=== PATIENT | male | born 1935 | race Two or more races ===

== ENCOUNTER 2017-11-22 15:22 | Emergency (ER) | payer MEDICARE ==
[~2017-11-22] VITALS: Ht 167.6 cm; Wt 77.1 kg
[2017-11-22] MEDS ORDERED: IV NS 0.9% 1,000 ML BAG IV ONE (16:30)
--- NOTE | 2017-11-22 16:30 | NUR ---
PT CAME FROM CLINIC C/O HIGH BLOOD SUGAR. PT DENIES CP, SOB, DIZZINESS, N/V, @ THIS TIME. PT SEEN & EVAL'D BY DR. ROMERO.
[2017-11-22 16:31] LABS: BASOPHILS # (AUTO) 0.1 /CMM (0.0-0.2); BASOPHILS % (AUTO) 0.9 % (0.0-2.0); EOSINOPHILS % (AUTO) 1.8 % (0.0-6.0); HEMATOCRIT 45 % (39-51); HEMOGLOBIN 14.9 g/dL (13.5-17.5); LYMPHOCYTES # (AUTO) 2.2 /CMM (0.8-4.8); LYMPHOCYTES % (AUTO) 32.4 % (20.0-44.0); MEAN CORPUSCULAR HEMOGLOBIN 29 PG (26.0-33.0); MEAN CORPUSCULAR HGB CONC 33 g/dl (31.0-36.0); MEAN CORPUSCULAR VOLUME 87 fL (80-96); MONOCYTES # (AUTO) 0.3 /CMM (0.1-1.30); MONOCYTES % (AUTO) 4.5 % (2.0-12.0); NEUTROPHILS # (AUTO) 4.1 /CMM (1.8-8.9); NEUTROPHILS % (AUTO) 60.4 % (43.0-81.0); PLATELET COUNT (AUTO) 168 /CMM (150-450); RDW COEFFICIENT OF VARIATION 12.7 (11.5-15.0); RED BLOOD CELL COUNT(AUTO) 5.21 MIL/uL (4.5-6.0); WHITE BLOOD COUNT (AUTO) 6.8 K/uL (4.3-11.0)
--- NOTE | 2017-11-22 16:37 | NUR ---
urine sent to lab
[2017-11-22 16:46] LABS: ALANINE AMINOTRANSFERASE 96 U/L (12-78); ALBUMIN 3.8 g/dL (3.4-5.0); ALKALINE PHOSPHATASE 74 U/L (46-116); ASPARTATE AMINOTRANSFERASE 75 U/L (15-37); BILIRUBIN,DIRECT 0.2 mg/dL (0.0-0.2); BILIRUBIN,TOTAL 0.9 mg/dL (0.2-1.0); CALCIUM, SERUM 9.7 mg/dL (8.5-10.1); CARBON DIOXIDE 29 mmol/L (21-32); CHLORIDE 95 mmol/L (98-107); CREATININE 1.1 mg/dL (0.6-1.3); LIPASE 240 U/L (73-393); POTASSIUM 4.2 mmol/L (3.5-5.1); SODIUM SERUM 131 mmol/L (136-145); TOTAL PROTEIN, SERUM 9.5 g/dL (6.4-8.2); UREA NITROGEN, BLOOD 18 mg/dL (7-18)
[2017-11-22 16:51] LABS: GLUCOSE 373 mg/dL (74-106)
[2017-11-22 16:53] LABS: APPEARANCE,URINE SL CLOUDY (CLEAR); BILIRUBIN,URINE NEGATIVE (NEGATIVE); BLOOD, URINE NEGATIVE Ery/uL (NEGATIVE); COLOR,URINE YELLOW (YELLOW); KETONES,URINE NEGATIVE (NEGATIVE); LEUKOCYTE ESTERASE ,URINE NEGATIVE (NEGATIVE); NITRITE, URINE NEGATIVE (NEGATIVE); PROTEIN,URINE NEGATIVE (NEGATIVE); UGLUCOSE 3+ mg/dL (NEGATIVE); UROBILINOGEN,URINE 0.2 EU/dL (0.2)
[2017-11-22 16:56] LABS: BACTERIA,URINE None seen /HPF (None Seen); RBC,URINE 0-2 /HPF (0-2); SQUAMOUS EPITHELIAL CELL,UR Rare /HPF (None Seen); WBC,URINE 0-2 /HPF (0-3)
[2017-11-22 18:15] VITALS: BP 142/88
--- NOTE | 2017-11-22 18:30 | NUR ---
IV removed. Catheter intact and site benign. Pressure and 4x4 applied to site. No bleeding noted.
--- NOTE | 2017-11-22 18:31 | NUR ---
IV removed. Catheter intact and site benign. Pressure and 4x4 applied to site. No bleeding noted.
--- NOTE | 2017-11-22 18:36 | NUR ---
Patient discharged to home in stable condition. Written and verbal after care instructions given. Patient verbalizes understanding of instruction.
== END 2017-11-22 18:37 | disposition home or self-care (01) ==
LOC: EDBD 15:29 → ER 15:29
DX: E11.65 Type 2 diabetes mellitus with hyperglycemia (principal); I10 Essential (primary) hypertension
CPT/HCPCS: 36415; 80048; 80076; 81001; 82962 ×2; 83690; 85025; 96360; 99284; A4606; J7030; 81000-TC; Z7610

== ENCOUNTER 2018-03-20 19:09 | Emergency (ER) | payer MEDICAID, MEDICARE ==
[~2018-03-20] VITALS: Ht 170.2 cm; Wt 84.4 kg
--- NOTE | 2018-03-20 19:40 | NUR ---
Pt came in for abdominal discomfort from diarrhea, bloody stool reported by family member. Pt is A, O/4, does not c/o of abdominal pain at this time. No diarrhea episode noted on assement. Awaiting to be seen by .
[2018-03-20 20:10] LABS: BASOPHILS # (AUTO) 0.1 /CMM (0.0-0.2); EOSINOPHILS % (AUTO) 3.5 % (0.0-6.0); HEMATOCRIT 43 % (39-51); LYMPHOCYTES # (AUTO) 2.3 /CMM (0.8-4.8); LYMPHOCYTES % (AUTO) 39.1 % (20.0-44.0); MEAN CORPUSCULAR HGB CONC 33 g/dl (31.0-36.0); MEAN CORPUSCULAR VOLUME 88 fL (80-96); MONOCYTES # (AUTO) 0.3 /CMM (0.1-1.30); MONOCYTES % (AUTO) 5.7 % (2.0-12.0); NEUTROPHILS # (AUTO) 2.9 /CMM (1.8-8.9); NEUTROPHILS % (AUTO) 50.7 % (43.0-81.0); PLATELET COUNT (AUTO) 132 /CMM (150-450); RED BLOOD CELL COUNT(AUTO) 4.86 MIL/uL (4.5-6.0); WHITE BLOOD COUNT (AUTO) 5.8 K/uL (4.3-11.0)
[2018-03-20 20:23] LABS: ALANINE AMINOTRANSFERASE 87 U/L (12-78); ALBUMIN 3.4 g/dL (3.4-5.0); ALKALINE PHOSPHATASE 75 U/L (46-116); ASPARTATE AMINOTRANSFERASE 74 U/L (15-37); BILIRUBIN,DIRECT 0.2 mg/dL (0.0-0.2); BILIRUBIN,TOTAL 0.8 mg/dL (0.2-1.0); CARBON DIOXIDE 26 mmol/L (21-32); CHLORIDE 96 mmol/L (98-107); CREATININE 1.2 mg/dL (0.6-1.3); LIPASE 181 U/L (73-393); SODIUM SERUM 132 mmol/L (136-145); TOTAL PROTEIN, SERUM 8.1 g/dL (6.4-8.2); UREA NITROGEN, BLOOD 15 mg/dL (7-18)
[2018-03-20 20:25] LABS: GLUCOSE 493 mg/dL (74-106)
[2018-03-20] MEDS ORDERED: INSULIN REGULAR, HUMAN 100 UNIT/ML 10 ML VIAL ONE (20:49)
[2018-03-20] MEDS ORDERED: INSULIN REGULAR, HUMAN 100 UNIT/ML 10 ML VIAL SQ ONE (21:00)
[2018-03-20] MEDS ORDERED: IV NS 0.9% 1,000 ML BAG IV ONE (21:00)
--- NOTE | 2018-03-20 21:40 | NUR ---
Pt appears calm in bed, family members at bedside. No episode of diarrhea, no abdominal discomfort reported.
--- NOTE | 2018-03-20 21:50 | NUR ---
Patient discharged to home in stable condition. Written and verbal after care instructions given. Patient verbalizes understanding of instruction.IV removed. Catheter intact and site benign. Pressure and 4x4 applied to site. No bleeding noted.Pt ambulatory with a steady gait.
[2018-03-20 21:59] VITALS: BP 140/64
== END 2018-03-20 22:00 | disposition home or self-care (01) ==
LOC: ER 19:10
DX: K92.1 Melena (principal); E11.65 Type 2 diabetes mellitus with hyperglycemia; I10 Essential (primary) hypertension
CPT/HCPCS: 36415; 80048; 80076; 83690; 85025; 85730; 93005; 96360; 96372; 99284; A4606; J1815; J7030; Z7610

== ENCOUNTER 2019-01-11 20:07 | Emergency (ER) | payer MEDICARE, MEDICAID ==
[~2019-01-11] VITALS: Ht 165.1 cm; Wt 79.4 kg
--- NOTE | 2019-01-11 20:35 | NUR ---
PT SENT BY PMD FOR BG AT 575. PT ON MONITOR IN BED 10 WITH FAMILY AT BEDSIDE. PT AOX4. NAD NOTED. REPS EVEN AND UNLABORED. WILL CONTINUE TO MONITOR.
[2019-01-11 21:29] LABS: BASOPHILS # (AUTO) 0.1 /CMM (0.0-0.2); BASOPHILS % (AUTO) 1.4 % (0.0-2.0); EOSINOPHILS % (AUTO) 4.2 % (0.0-6.0); HEMATOCRIT 43 % (39-51); LYMPHOCYTES # (AUTO) 2.3 /CMM (0.8-4.8); LYMPHOCYTES % (AUTO) 35.6 % (20.0-44.0); MEAN CORPUSCULAR HGB CONC 33 g/dl (31.0-36.0); MEAN CORPUSCULAR VOLUME 83 fL (80-96); MONOCYTES # (AUTO) 0.5 /CMM (0.1-1.30); MONOCYTES % (AUTO) 7.7 % (2.0-12.0); NEUTROPHILS # (AUTO) 3.3 /CMM (1.8-8.9); NEUTROPHILS % (AUTO) 51.1 % (43.0-81.0); PLATELET COUNT (AUTO) 138 /CMM (150-450); RED BLOOD CELL COUNT(AUTO) 5.12 MIL/uL (4.5-6.0); WHITE BLOOD COUNT (AUTO) 6.4 K/uL (4.3-11.0)
[2019-01-11] MEDS ORDERED: INSULIN REGULAR, HUMAN 100 UNIT/ML 10 ML VIAL IV ONE (21:30)
[2019-01-11] MEDS ORDERED: IV NS 0.9% 1,000 ML BAG IV ONE (21:30)
[2019-01-11 21:48] LABS: CALCIUM, SERUM 9.2 mg/dL (8.5-10.1); POTASSIUM 4.4 mmol/L (3.5-5.1)
[2019-01-11] MEDS ORDERED: INSULIN REGULAR, HUMAN 100 UNIT/ML 10 ML VIAL ONE (21:48)
--- NOTE | 2019-01-11 22:19 | NUR ---
BG 351. AWARE.
[2019-01-11 22:40] VITALS: BP 135/84
--- NOTE | 2019-01-11 22:40 | NUR ---
Patient discharged to home in stable condition. Written and verbal after care instructions given. Patient verbalizes understanding of instruction. IV removed. Catheter intact and site benign. Pressure and 4x4 applied to site. No bleeding noted. AMBULATORY STEADY GAIT.
== END 2019-01-11 22:53 | disposition home or self-care (01) ==
LOC: ER 20:12
DX: E11.65 Type 2 diabetes mellitus with hyperglycemia (principal); I10 Essential (primary) hypertension; F17.210 Nicotine dependence, cigarettes, uncomplicated; Z79.4 Long term (current) use of insulin
CPT/HCPCS: 36415; 80048; 82962 ×2; 84484; 85025; 93005; 96361; 96374; 99284; 99406; J1815; J7030

== ENCOUNTER 2019-01-14 12:28 | Emergency (ER) | payer MEDICARE, MEDICAID ==
[~2019-01-14] VITALS: Ht 167.6 cm; Wt 77.1 kg
--- NOTE | 2019-01-14 12:45 | NUR ---
BIB FAMILY FOR LEFT ARM NUMBNESS - AT 0600 AM TODAY; WITH HEADACHE, TO ER BED 10, HOOKED TO MONITOR, CHANGED TO GOWN, PROVIDED W WARM BLANKET, DR PATEL AT BEDSIDE
[2019-01-14 12:59] LABS: BASOPHILS % (AUTO) 0.7 % (0.0-2.0); EOSINOPHILS % (AUTO) 3.2 % (0.0-6.0); HEMATOCRIT 44 % (39-51); HEMOGLOBIN 14.4 g/dL (13.5-17.5); LYMPHOCYTES # (AUTO) 2.5 /CMM (0.8-4.8); MEAN CORPUSCULAR HGB CONC 33 g/dl (31.0-36.0); MEAN CORPUSCULAR VOLUME 84 fL (80-96); MONOCYTES # (AUTO) 0.4 /CMM (0.1-1.30); MONOCYTES % (AUTO) 5.8 % (2.0-12.0); NEUTROPHILS # (AUTO) 3.7 /CMM (1.8-8.9); NEUTROPHILS % (AUTO) 54.3 % (43.0-81.0); PLATELET COUNT (AUTO) 141 /CMM (150-450); RED BLOOD CELL COUNT(AUTO) 5.28 MIL/uL (4.5-6.0); WHITE BLOOD COUNT (AUTO) 6.9 K/uL (4.3-11.0)
[2019-01-14] MEDS ORDERED: IV NS 0.9% 500 ML BAG IV ONE (13:00)
--- NOTE | 2019-01-14 13:11 | NUR ---
PATIENT WHEELED OUT VIA GURNEY FOR CT SCAN
[2019-01-14 13:13] LABS: CARBON DIOXIDE 28 mmol/L (21-32); CHLORIDE 97 mmol/L (98-107); SODIUM SERUM 132 mmol/L (136-145)
[2019-01-14 13:15] LABS: CALCIUM, SERUM 9.5 mg/dL (8.5-10.1); CREATININE 0.9 mg/dL (0.6-1.3); UREA NITROGEN, BLOOD 16 mg/dL (7-18)
[2019-01-14 13:21] LABS: ALKALINE PHOSPHATASE 85 U/L (46-116); ASPARTATE AMINOTRANSFERASE 58 U/L (15-37); BILIRUBIN,DIRECT 0.2 mg/dL (0.0-0.2); BILIRUBIN,TOTAL 0.7 mg/dL (0.2-1.0)
[2019-01-14 13:22] LABS: ALANINE AMINOTRANSFERASE 62 U/L (12-78); ALBUMIN 3.5 g/dL (3.4-5.0); TOTAL PROTEIN, SERUM 8.7 g/dL (6.4-8.2)
[2019-01-14 13:25] LABS: GLUCOSE 373 mg/dL (74-106)
[2019-01-14 13:27] LABS: B-TYPE NATRIURETIC PEPTIDE 83 PG/ML (0-125)
[2019-01-14 14:26] VITALS: BP 142/78
--- NOTE | 2019-01-14 14:26 | NUR ---
IV removed. Catheter intact and site benign. Pressure and 4x4 applied to site. No bleeding noted. Patient discharged to home in stable condition. Written and verbal after care instructions given. Patient and family verbalizes understanding of instruction.
== END 2019-01-14 14:27 | disposition home or self-care (01) ==
LOC: ER 12:37
DX: E11.65 Type 2 diabetes mellitus with hyperglycemia (principal); R20.0 Anesthesia of skin; I10 Essential (primary) hypertension
CPT/HCPCS: 36415; 70450; 71045; 80048; 80076; 82962; 83880; 84484; 85025; 85730; 93005 ×2; 99284; J7040

== ENCOUNTER 2019-10-13 13:04 | Emergency (ER) | payer MEDICARE, OTHER ==
[~2019-10-13] VITALS: Ht 167.6 cm; Wt 81.6 kg
[2019-10-13 13:25] VITALS: BP 168/94
--- NOTE | 2019-10-13 14:10 | NUR ---
AT BEDSIDE FOR EVAL.
--- NOTE | 2019-10-13 14:33 | NUR ---
PT IS BACK FROM THE CT SCAN.
--- NOTE | 2019-10-13 15:05 | NUR ---
Patient discharged to home in stable condition. Written and verbal after care instructions given. Patient verbalizes understanding of instruction.
== END 2019-10-13 15:06 | disposition home or self-care (01) ==
LOC: ER 13:17
DX: S13.8XXA Sprain of joints and ligaments of other parts of neck, initial encounter (principal); S00.83XA Contusion of other part of head, initial encounter; R51 Headache; I10 Essential (primary) hypertension; E11.9 Type 2 diabetes mellitus without complications; W18.09XA Striking against other object with subsequent fall, initial encounter; Y93.89 Activity, other specified; Y92.89 Other specified places as the place of occurrence of the external cause; Y99.8 Other external cause status
CPT/HCPCS: 70450-TC; 72125-TC

== ENCOUNTER 2024-08-13 14:05 | Inpatient (IN) | payer MEDICARE, OTHER ==
[~2024-08-13] VITALS: Ht 157.5 cm; Wt 68.9 kg
[2024-08-13] MEDS: IV NS 0.9% 1,000 ML BAG IV ONE ×2 (15:18→17:20)
[2024-08-13 16:02] LABS: BASOPHILS % (AUTO) 0.3 % (0.0-2.0); EOSINOPHILS % (AUTO) 0.1 % (0.0-6.0); HEMATOCRIT 31 % (39-51); LYMPHOCYTES # (AUTO) 0.6 K/uL (0.8-4.8); MEAN CORPUSCULAR HEMOGLOBIN 27 PG (26.0-33.0); MEAN CORPUSCULAR HGB CONC 32 g/dl (31.0-36.0); MEAN CORPUSCULAR VOLUME 84 fL (80-96); MONOCYTES # (AUTO) 0.6 K/uL (0.1-1.30); NEUTROPHILS # (AUTO) 8.2 K/uL (1.8-8.9); NEUTROPHILS % (AUTO) 87.6 % (43.0-81.0); PLATELET COUNT (AUTO) 292 K/uL (150-450); RED BLOOD CELL COUNT(AUTO) 3.66 MIL/uL (4.5-6.0); WHITE BLOOD COUNT (AUTO) 9.3 K/uL (4.3-11.0)
[2024-08-13] MEDS ORDERED: METF-837 PO ×2 (16:11)
[2024-08-13] MEDS ORDERED: GLIM4TAB PO (16:11)
[2024-08-13] MEDS ORDERED: LISI20TA30 PO (16:11)
[2024-08-13] MEDS ORDERED: DOXA4TAB19 PO (16:11)
[2024-08-13 16:17] LABS: CARBON DIOXIDE 21 mmol/L (21-32); CHLORIDE 90 mmol/L (98-107); CREATININE 2.2 mg/dL (0.6-1.3); GLUCOSE 178 mg/dL (74-106); POTASSIUM 3.7 mmol/L (3.5-5.1); SODIUM SERUM 124 mmol/L (136-145); UREA NITROGEN, BLOOD 49 mg/dL (7-18)
[2024-08-13] MEDS: LORAZEPAM INJ 2 MG/ML VIAL IV ONE ×2 (16:20→17:19)
[2024-08-13 16:22] LABS: ALANINE AMINOTRANSFERASE 14 U/L (12-78); ALBUMIN 2.9 g/dL (3.4-5.0); ALCOHOL, BLOOD < 3 mg/dL (0-10); ALKALINE PHOSPHATASE 96 U/L (46-116); ASPARTATE AMINOTRANSFERASE 24 U/L (15-37); BILIRUBIN,DIRECT 0.3 mg/dL (0.0-0.2); BILIRUBIN,TOTAL 0.6 mg/dL (0.2-1.0); TOTAL PROTEIN, SERUM 8.5 g/dL (6.4-8.2)
[2024-08-13 16:24] LABS: ACETAMINOPHEN 0 ug/ml (10-30); SALICYLATE 1.7 mg/dL (2.8-20.0)
[2024-08-13 16:31] LABS: APPEARANCE,URINE CLOUDY (CLEAR); BILIRUBIN,URINE NEGATIVE (NEGATIVE); BLOOD, URINE 1+ Ery/uL (NEGATIVE); COLOR,URINE YELLOW (YELLOW); KETONES,URINE NEGATIVE (NEGATIVE); LEUKOCYTE ESTERASE ,URINE 2+ (NEGATIVE); NITRITE, URINE NEGATIVE (NEGATIVE); PROTEIN,URINE 2+ mg/dl (NEGATIVE); UGLUCOSE NEGATIVE (NEGATIVE); UROBILINOGEN,URINE 0.2 EU/dL (0.2)
[2024-08-13 16:33] LABS: LACTIC ACID 3.3 mmol/L (0.4-2.0)
[2024-08-13 16:41] LABS: ADD URINE CULTURE YES; BACTERIA,URINE Moderate /HPF (None Seen); SQUAMOUS EPITHELIAL CELL,UR 0-2 /HPF (None Seen); WBC,URINE 51-80 /HPF (0-3)
[2024-08-13] MEDS: CEFTRIAXONE 1GM BAG (ER ONLY) 50 ML IV ONE (17:19)
[2024-08-13] MEDS: hydrALAZINE HCL IV 20 MG VIAL IV PRN (18:25)
[2024-08-13] MEDS ORDERED: ENOXAPARIN SODIUM 40 MG/0.4 ML DISP.SYRIN SQ SCH (18:30)
[2024-08-13] MEDS ORDERED: Z GUARD REMEDY 4 OZ OINT TP PRN (18:30)
[2024-08-13] MEDS ORDERED: LORAZEPAM INJ 2 MG/ML VIAL IM PRN (18:30)
[2024-08-13] MEDS ORDERED: ONDANSETRON HCL/PF 4 MG/2 ML VIAL IVP PRN (18:30)
[2024-08-13] MEDS ORDERED: MAG HYDROX/AL HYDROX/SIMETH 30 ML UDC PO PRN (18:30)
[2024-08-13] MEDS ORDERED: LORAZEPAM INJ 2 MG/ML VIAL IV ONE (18:30)
[2024-08-13] MEDS ORDERED: MAGNESIUM HYDROXIDE 30 ML UDC PO PRN (18:30)
[2024-08-13] MEDS ORDERED: CLONIDINE HCL 0.1 MG TABLET ONE (19:36)
[2024-08-13] MEDS: CLONIDINE HCL 0.1 MG TABLET PO PRN (19:46)
[2024-08-13] MEDS ORDERED: ACETAMINOPHEN ES 500 MG TABLET ONE (19:53)
[2024-08-13] MEDS: ACETAMINOPHEN ES 500 MG TABLET PO PRN (19:56)
[2024-08-13 20:00] VITALS: BP 189/83; TEMP 97.9; O2SAT 98
[2024-08-13] MEDS: IV NS 0.9% 1,000 ML IV PRN (20:33)
[2024-08-13] MEDS: DOXAZOSIN MESYLATE (4 MG) 4 MG TABLET PO SCH (20:45)
[2024-08-13] MEDS: LISINOPRIL (20MG) 20 MG TABLET PO SCH (20:45)
[2024-08-13] MEDS: ENOXAPARIN SODIUM 30 MG/0.3 ML DISP.SYRIN SQ SCH (20:46)
[2024-08-13] MEDS: GLIMEPIRIDE 4 MG TABLET PO SCH (20:54)
[2024-08-13 21:30] VITALS: BP 126/61
[2024-08-14] VITALS (32 sets, daily range): BP systolic 81–156; BP diastolic 42–97; TEMP 97.5–100.4; O2SAT 89–100
[2024-08-14] MEDS: ACETAMINOPHEN 325 MG TABLET PO PRN (00:36)
[2024-08-14] MEDS: IV NS 0.9% 500 ML IV ONE (04:39)
[2024-08-14] MEDS ORDERED: IV LR 1000 ML 1,000 ML IV STA (05:24)
[2024-08-14] MEDS: IV LR 1000 ML 1,000 ML IV STA (05:41)
[2024-08-14 06:57] LABS: BASOPHILS % (AUTO) 0.3 % (0.0-2.0); EOSINOPHILS % (AUTO) 0.3 % (0.0-6.0); HEMATOCRIT 24 % (39-51); HEMOGLOBIN 7.8 g/dL (13.5-17.5); LYMPHOCYTES # (AUTO) 2.2 K/uL (0.8-4.8); LYMPHOCYTES % (AUTO) 29.5 % (20.0-44.0); MEAN CORPUSCULAR HEMOGLOBIN 28 PG (26.0-33.0); MEAN CORPUSCULAR HGB CONC 33 g/dl (31.0-36.0); MEAN CORPUSCULAR VOLUME 84 fL (80-96); MONOCYTES # (AUTO) 0.8 K/uL (0.1-1.30); MONOCYTES % (AUTO) 10.4 % (2.0-12.0); NEUTROPHILS # (AUTO) 4.3 K/uL (1.8-8.9); NEUTROPHILS % (AUTO) 59.5 % (43.0-81.0); PLATELET COUNT (AUTO) 197 K/uL (150-450); RED BLOOD CELL COUNT(AUTO) 2.82 MIL/uL (4.5-6.0); RED CELL DISTRIBUTION WIDTH 14.8 % (11.5-15.0); WHITE BLOOD COUNT (AUTO) 7.3 K/uL (4.3-11.0)
[2024-08-14 07:09] LABS: CALCIUM, SERUM 6.8 mg/dL (8.5-10.1); CREATININE 2.1 mg/dL (0.6-1.3); MAGNESIUM 1.6 mg/dL (1.8-2.4); PHOSPHORUS 3.2 mg/dL (2.5-4.9); POTASSIUM 3.2 mmol/L (3.5-5.1)
[2024-08-14] MEDS: PANTOPRAZOLE 40 MG TABLET.DR PO SCH (07:30)
[2024-08-14 07:34] LABS: LACTIC ACID 1.8 mmol/L (0.4-2.0)
[2024-08-14] MEDS: DEXTROSE 50%-WATER 50 ML DISP.SYRIN IV PRN (07:40)
[2024-08-14] MEDS: BLOOD SUGAR DIAGNOSTIC 1 EACH STRIP IN SCH (07:47)
[2024-08-14] MEDS: CEFTRIAXONE 1 G in IV D5W 50 ML IV SCH (07:52)
[2024-08-14] MEDS: NOREPINEPHRINE 32 MG in IV NS 0.9% 218 ML IV PRN (07:58)
[2024-08-14] MEDS: IV NS 0.9% 1,000 ML IV PRN (08:43)
[2024-08-14] MEDS ORDERED: METFORMIN XR 500 MG TAB.SR.24H PO SCH ×4 (09:00→18:00)
[2024-08-14] MEDS: Thiamine 100 MG in IV D5W 50 ML IV SCH (12:10)
[2024-08-14 12:14] LABS: CREATININE, URINE 33.5 MG/DL (30.0-125.0); URINE TOTAL PROTEIN 206.7 mg/dL (0-11.9)
[2024-08-14] MEDS ORDERED: DOSE PER PHARMACY (MD SPECIFY MEDICATION) 1 EA IV PRN (13:00)
[2024-08-14] MEDS: POTASSIUM CL. PREMIX PERIPHER. 50 ML IV SCH (13:27)
[2024-08-14] MEDS: MEROPENEM 1 G in IV NS 0.9% 100 ML IV SCH (14:04)
[2024-08-14] MEDS: INSULIN REGULAR, HUMAN 100 UNIT/ML 3 ML VIAL SQ PRN (22:38)
[2024-08-15] VITALS (22 sets, daily range): BP systolic 103–157; BP diastolic 54–83; TEMP 96.2–98.5; O2SAT 95–99
[2024-08-15 06:32] LABS: BASOPHILS % (AUTO) 0.3 % (0.0-2.0); EOSINOPHILS # (AUTO) 0.1 K/uL (0.0-0.7); EOSINOPHILS % (AUTO) 1.6 % (0.0-6.0); HEMATOCRIT 27 % (39-51); HEMOGLOBIN 8.9 g/dL (13.5-17.5); LYMPHOCYTES # (AUTO) 0.7 K/uL (0.8-4.8); LYMPHOCYTES % (AUTO) 11.1 % (20.0-44.0); MEAN CORPUSCULAR HEMOGLOBIN 27 PG (26.0-33.0); MEAN CORPUSCULAR HGB CONC 33 g/dl (31.0-36.0); MEAN CORPUSCULAR VOLUME 83 fL (80-96); MONOCYTES # (AUTO) 0.3 K/uL (0.1-1.30); MONOCYTES % (AUTO) 5.6 % (2.0-12.0); NEUTROPHILS % (AUTO) 81.4 % (43.0-81.0); PLATELET COUNT (AUTO) 222 K/uL (150-450); RED BLOOD CELL COUNT(AUTO) 3.27 MIL/uL (4.5-6.0); RED CELL DISTRIBUTION WIDTH 14.7 % (11.5-15.0); WHITE BLOOD COUNT (AUTO) 6.2 K/uL (4.3-11.0)
[2024-08-15] MEDS: BETHANECHOL CHLORIDE (10 MG) 10 MG TABLET PO SCH (08:07)
[2024-08-15] MEDS: TAMSULOSIN 0.4 MG CAP.SR.24H PO SCH (10:08)
[2024-08-15 10:27] LABS: ALBUMIN 1.9 g/dL (3.4-5.0); BILIRUBIN,TOTAL 0.4 mg/dL (0.2-1.0); CALCIUM, SERUM 7.7 mg/dL (8.5-10.1); CREATININE 1.6 mg/dL (0.6-1.3); MAGNESIUM 1.8 mg/dL (1.8-2.4); PHOSPHORUS 2.6 mg/dL (2.5-4.9); THYROID STIMULATING HORMONE 0.97 uIU/mL (0.358-3.74); TOTAL PROTEIN, SERUM 6.2 g/dL (6.4-8.2)
[2024-08-15 13:43] LABS: THYROID STIMULATING HORMONE 0.99 uIU/mL (0.358-3.74)
[2024-08-15] MEDS: CHLORDIAZEPOXIDE HCL 25 MG CAPSULE PO SCH (16:18)
[2024-08-16] VITALS: BP 152/82; TEMP 100.2; O2SAT 98
[2024-08-16 04:00] VITALS: BP 123/67; TEMP 98.6; O2SAT 97
[2024-08-16 04:00] LABS: APPEARANCE,URINE TURBID (CLEAR); BILIRUBIN,URINE NEGATIVE (NEGATIVE); BLOOD, URINE 2+ Ery/uL (NEGATIVE); COLOR,URINE DARK YELLOW (YELLOW); KETONES,URINE NEGATIVE (NEGATIVE); LEUKOCYTE ESTERASE ,URINE 3+ (NEGATIVE); NITRITE, URINE NEGATIVE (NEGATIVE); PROTEIN,URINE 2+ mg/dl (NEGATIVE); UGLUCOSE TRACE mg/dL (NEGATIVE); UROBILINOGEN,URINE 0.2 EU/dL (0.2)
[2024-08-16 04:05] LABS: AMPHETAMINE, URINE NEGATIVE (NEGATIVE); BARBITURATE, URINE NEGATIVE (NEGATIVE); BENZODIAZEPINE, URINE NEGATIVE (NEGATIVE); CANNABINOID, URINE NEGATIVE (NEGATIVE); COCCAINE, URINE NEGATIVE (NEGATIVE); OPIATE, URINE NEGATIVE (NEGATIVE); PHENCYCLIDINE SCREEN,URINE NEGATIVE (NEGATIVE)
[2024-08-16 04:06] LABS: ADD URINE CULTURE YES; BACTERIA,URINE Moderate /HPF (None Seen); SQUAMOUS EPITHELIAL CELL,UR Rare /HPF (None Seen); WBC,URINE 21-50 /HPF (0-3)
[2024-08-16 08:00] VITALS: BP 138/70; TEMP 98.2; O2SAT 95
[2024-08-16 08:38] LABS: CALCIUM, SERUM 7.8 mg/dL (8.5-10.1); CREATININE 1.5 mg/dL (0.6-1.3); POTASSIUM 3.6 mmol/L (3.5-5.1)
[2024-08-16] MEDS: FOLIC ACID 1 MG TABLET PO SCH (08:48)
[2024-08-16] MEDS: THIAMINE HCL 100 MG TABLET PO SCH (08:48)
[2024-08-16 11:08] LABS: FOLIC ACID 15.4 ng/mL (>3.0)
[2024-08-16 11:08] LABS: PTH, INTACT 48 pg/mL (15-65)
[2024-08-16 16:00] VITALS: BP 171/97; TEMP 98.2; O2SAT 98
[2024-08-16] MEDS: AMLODIPINE BESYLATE 5 MG TABLET PO ONE (18:22)
[2024-08-16 20:00] VITALS: BP 165/93; TEMP 99.1; O2SAT 97
[2024-08-17 04:00] VITALS: BP 143/81; TEMP 99.7; O2SAT 97
[2024-08-17 06:12] LABS: HEPATITIS B SURFACE AB (QUAL) Non Reactive (.)
[2024-08-17 07:46] LABS: BASOPHILS % (AUTO) 0.6 % (0.0-2.0); EOSINOPHILS # (AUTO) 0.4 K/uL (0.0-0.7); EOSINOPHILS % (AUTO) 8.4 % (0.0-6.0); HEMATOCRIT 28 % (39-51); HEMOGLOBIN 9.5 g/dL (13.5-17.5); LYMPHOCYTES % (AUTO) 18.5 % (20.0-44.0); MEAN CORPUSCULAR HEMOGLOBIN 28 PG (26.0-33.0); MEAN CORPUSCULAR HGB CONC 34 g/dl (31.0-36.0); MEAN CORPUSCULAR VOLUME 83 fL (80-96); MONOCYTES # (AUTO) 0.4 K/uL (0.1-1.30); MONOCYTES % (AUTO) 8.4 % (2.0-12.0); NEUTROPHILS # (AUTO) 3.3 K/uL (1.8-8.9); NEUTROPHILS % (AUTO) 64.1 % (43.0-81.0); PLATELET COUNT (AUTO) 265 K/uL (150-450); RED CELL DISTRIBUTION WIDTH 14.7 % (11.5-15.0); WHITE BLOOD COUNT (AUTO) 5.2 K/uL (4.3-11.0)
[2024-08-17 08:09] LABS: COMPLEMENT C3, SERUM 91 mg/dL (82-167); COMPLEMENT C4, SERUM 18 mg/dL (12-38)
[2024-08-17 08:12] LABS: CALCIUM, SERUM 8.4 mg/dL (8.5-10.1); CREATININE 1.5 mg/dL (0.6-1.3)
[2024-08-17 10:53] LABS: MAGNESIUM 1.8 mg/dL (1.8-2.4); PHOSPHORUS 2.2 mg/dL (2.5-4.9)
[2024-08-17 11:11] LABS: *ANA ANTI-CENTROMERE B AB <0.2 AI (0.0-0.9); *ANA ANTI-DNA(DS) AB, QN 1 IU/mL (0-9); *ANA ANTI-JO-1 <0.2 AI (0.0-0.9); *ANA ANTICHROMATIN ANTIBODY <0.2 AI (0.0-0.9); *ANA RNP ANTIBODIES <0.2 AI (0.0-0.9); *ANA SJOGREN'S ANTI-SS-A <0.2 AI (0.0-0.9); *ANA SJOGREN'S ANTI-SS-B 0.7 AI (0.0-0.9); *ANAANTI-SCLERODERMA-70 AB 0.2 AI (0.0-0.9); *ANASMITH AB <0.2 AI (0.0-0.9)
[2024-08-17] MEDS ORDERED: TAMS-12 PO (13:30)
[2024-08-17] MEDS ORDERED: CIPR500S2 PO (13:30)
[2024-08-17] MEDS ORDERED: BETH10TA4 PO (13:30)
[2024-08-17] MEDS ORDERED: K PHOS NEUTRAL 250 MG TABLET PO ONE (17:00)
[2024-08-18] MEDS ORDERED: CHLORDIAZEPOXIDE HCL 25 MG CAPSULE PO SCH (09:00)
[2024-08-20 09:07] LABS: VITAMIN B1 THIAMINE,WB 186.2 nmol/L (66.5-200.0)
== END 2024-08-17 16:28 | disposition home health service (06) | DRG 871 ==
LOC: ER 14:07 → TELE1 18:26 → SAOV 08-14 07:03 → ICU 08-14 07:05 → TELE1 08-15 20:50 → MEDSG1 08-16 09:44
PROVIDERS: ADMIT Nurse Practitioner Family; ATTEND Nurse Practitioner Family
DX: A41.9 Sepsis, unspecified organism (principal); G93.41 Metabolic encephalopathy; N17.0 Acute kidney failure with tubular necrosis; R65.21 Severe sepsis with septic shock; E44.1 Mild protein-calorie malnutrition; F10.139 Alcohol abuse with withdrawal, unspecified; N13.6 Pyonephrosis; E87.1 Hypo-osmolality and hyponatremia; E87.20 Acidosis, unspecified; N10 Acute pyelonephritis; E86.0 Dehydration; D64.9 Anemia, unspecified; E11.22 Type 2 diabetes mellitus with diabetic chronic kidney disease; E66.9 Obesity, unspecified; E83.42 Hypomagnesemia; E87.6 Hypokalemia; E88.09 Other disorders of plasma-protein metabolism, not elsewhere classified; N18.9 Chronic kidney disease, unspecified; Z79.84 Long term (current) use of oral hypoglycemic drugs; Z68.27 Body mass index [BMI] 27.0-27.9, adult; N40.1 Benign prostatic hyperplasia with lower urinary tract symptoms; R33.9 Retention of urine, unspecified; R53.1 Weakness; I12.9 Hypertensive chronic kidney disease with stage 1 through stage 4 chronic kidney disease, or unspecified chronic kidney disease; B96.89 Other specified bacterial agents as the cause of diseases classified elsewhere
CPT/HCPCS: 36415; 70450-TC; 71045-TC; 76770-TC; 80048-TC; 80053-TC; 80076-TC; 81001; 82550-TC; 82570-TC; 82607-TC; 82962-TC; 83605-TC; 83735-TC; 83921; 83970; 84100-TC; 84155; 84165; 84300-TC; 84425; 84439-TC; 84443-TC; 84484-TC; 85025-TC; 85652-TC; 86225; 86235; 86706; 86803; 87040-TC; 87081-TC; 87086-TC; 87340; 97110-TC; 97112-TC; 97116-TC; 97530-TC; 97535-TC; A4223; G0378; G0480; J0360; J0696; J1650; J1815; J2060; J2185; J3411; J3480; J7030; J7040; J7050; J7060; J7120

== ENCOUNTER 2024-09-10 12:52 | Inpatient (IN) | payer MEDICARE, OTHER ==
[~2024-09-10] VITALS: Ht 167.6 cm; Wt 67.1 kg
[~2024-09-10 12:52] MED LIST: BETH10TA4 PO; CIPR500S2 PO; METF-837 PO; TAMS-12 PO
[2024-09-10] MEDS: IV NS 0.9% 1,000 ML BAG IV ONE (13:04)
[2024-09-10 13:08] LABS: BASOPHILS # (AUTO) 0.1 K/uL (0.0-0.2); BASOPHILS % (AUTO) 0.5 % (0.0-2.0); EOSINOPHILS % (AUTO) 0.1 % (0.0-6.0); HEMATOCRIT 25 % (39-51); HEMOGLOBIN 8.1 g/dL (13.5-17.5); LYMPHOCYTES # (AUTO) 0.8 K/uL (0.8-4.8); LYMPHOCYTES % (AUTO) 5.4 % (20.0-44.0); MEAN CORPUSCULAR HEMOGLOBIN 27 PG (26.0-33.0); MEAN CORPUSCULAR HGB CONC 32 g/dl (31.0-36.0); MEAN CORPUSCULAR VOLUME 82 fL (80-96); MONOCYTES % (AUTO) 6.9 % (2.0-12.0); NEUTROPHILS # (AUTO) 12.7 K/uL (1.8-8.9); NEUTROPHILS % (AUTO) 87.1 % (43.0-81.0); PLATELET COUNT (AUTO) 337 K/uL (150-450); RED BLOOD CELL COUNT(AUTO) 3.05 MIL/uL (4.5-6.0); RED CELL DISTRIBUTION WIDTH 15.1 % (11.5-15.0); WHITE BLOOD COUNT (AUTO) 14.5 K/uL (4.3-11.0)
[2024-09-10] MEDS: CEFEPIME 1 GM in IV D5W 50 ML IV ONE (13:20)
[2024-09-10 13:21] LABS: ALANINE AMINOTRANSFERASE 26 U/L (12-78); ALBUMIN 2.4 g/dL (3.4-5.0); ALKALINE PHOSPHATASE 97 U/L (46-116); ASPARTATE AMINOTRANSFERASE 57 U/L (15-37); BILIRUBIN,DIRECT 0.2 mg/dL (0.0-0.2); BILIRUBIN,TOTAL 0.6 mg/dL (0.2-1.0); CALCIUM, SERUM 9.1 mg/dL (8.5-10.1); CARBON DIOXIDE 19 mmol/L (21-32); CHLORIDE 98 mmol/L (98-107); CREATININE 2.7 mg/dL (0.6-1.3); GLUCOSE 243 mg/dL (74-106); POTASSIUM 4.8 mmol/L (3.5-5.1); SODIUM SERUM 128 mmol/L (136-145); TOTAL PROTEIN, SERUM 7.9 g/dL (6.4-8.2); UREA NITROGEN, BLOOD 62 mg/dL (7-18)
[2024-09-10 13:23] LABS: INR 1.06 (0.91-1.10); PARTIAL THROMBOPLASTIN TIME 27.2 SEC (24.3-34.3); PROTHROMBIN TIME 10.9 SECS (9.2-11.1)
[2024-09-10 13:25] LABS: LACTIC ACID 5.1 mmol/L (0.4-2.0)
[2024-09-10 14:10] LABS: APPEARANCE,URINE CLOUDY (CLEAR); BILIRUBIN,URINE Negative (NEGATIVE); BLOOD, URINE Large Ery/uL (NEGATIVE); COLOR,URINE YELLOW (YELLOW); KETONES,URINE Negative (NEGATIVE); LEUKOCYTE ESTERASE ,URINE Moderate (NEGATIVE); NITRITE, URINE NEGATIVE (NEGATIVE); PH,URINE 5.5 (5.0-8.0); PROTEIN,URINE >=300 mg/dl (NEGATIVE); UGLUCOSE Negative (NEGATIVE); UROBILINOGEN,URINE 0.2 EU/dL (0.2)
[2024-09-10 14:22] LABS: ADD URINE CULTURE YES; BACTERIA,URINE 1+ /HPF (None Seen); RBC,URINE 21-50 /HPF (0-2); SQUAMOUS EPITHELIAL CELL,UR Few /HPF (None Seen); WBC,URINE TOO NUMEROUS TO COUN /HPF (0-3)
[2024-09-10 16:17] VITALS: BP 117/68; TEMP 98.8; O2SAT 99
[2024-09-10] MEDS ORDERED: NALT50TA PO (16:20)
[2024-09-10] MEDS ORDERED: BIMA2.5D5 EACHEYE (16:20)
[2024-09-10] MEDS ORDERED: GLIM4TAB37 PO (16:20)
[2024-09-10] MEDS ORDERED: ACETAMINOPHEN 325 MG TABLET PO PRN (19:00)
[2024-09-10] MEDS ORDERED: DEXTROSE 50%-WATER 50 ML DISP.SYRIN IV PRN (19:00)
[2024-09-10] MEDS ORDERED: ONDANSETRON HCL/PF 4 MG/2 ML VIAL IVP PRN (19:00)
[2024-09-10] MEDS ORDERED: Z GUARD REMEDY 4 OZ OINT TP PRN (19:00)
[2024-09-10 20:00] VITALS: BP 102/65; TEMP 97.7; O2SAT 100
[2024-09-10] MEDS: IV LR 1000 ML 1,000 ML IV SCH (20:05)
[2024-09-10] MEDS: ENOXAPARIN SODIUM 40 MG/0.4 ML DISP.SYRIN SQ SCH (20:08)
[2024-09-10] MEDS: MEROPENEM 500 MG in IV NS 0.9% 50 ML IV SCH (20:31)
[2024-09-10] MEDS: VANCOMYCIN 1 GM in IV D5W 250ml IV ONE (21:10)
[2024-09-10] MEDS: TAMSULOSIN 0.4 MG CAP.SR.24H PO SCH (21:11)
[2024-09-10] MEDS: BLOOD SUGAR DIAGNOSTIC 1 EACH STRIP VI SCH (21:38)
[2024-09-10] MEDS: INSULIN REGULAR, HUMAN 100 UNIT/ML 3 ML VIAL SQ PRN (21:39)
[2024-09-11 04:00] VITALS: BP 102/62; TEMP 97.5; O2SAT 100
[2024-09-11 06:48] LABS: BASOPHILS # (AUTO) 0.1 K/uL (0.0-0.2); BASOPHILS % (AUTO) 0.7 % (0.0-2.0); EOSINOPHILS # (AUTO) 0.4 K/uL (0.0-0.7); EOSINOPHILS % (AUTO) 3.7 % (0.0-6.0); HEMATOCRIT 25 % (39-51); HEMOGLOBIN 8.1 g/dL (13.5-17.5); LYMPHOCYTES # (AUTO) 1.7 K/uL (0.8-4.8); LYMPHOCYTES % (AUTO) 16.1 % (20.0-44.0); MEAN CORPUSCULAR HEMOGLOBIN 27 PG (26.0-33.0); MEAN CORPUSCULAR HGB CONC 32 g/dl (31.0-36.0); MEAN CORPUSCULAR VOLUME 83 fL (80-96); MONOCYTES # (AUTO) 0.7 K/uL (0.1-1.30); MONOCYTES % (AUTO) 6.7 % (2.0-12.0); NEUTROPHILS # (AUTO) 7.6 K/uL (1.8-8.9); NEUTROPHILS % (AUTO) 72.8 % (43.0-81.0); PLATELET COUNT (AUTO) 322 K/uL (150-450); RED BLOOD CELL COUNT(AUTO) 3.04 MIL/uL (4.5-6.0); RED CELL DISTRIBUTION WIDTH 15.1 % (11.5-15.0); WHITE BLOOD COUNT (AUTO) 10.4 K/uL (4.3-11.0)
[2024-09-11 07:02] LABS: CALCIUM, SERUM 9.1 mg/dL (8.5-10.1); CREATININE 2.2 mg/dL (0.6-1.3); MAGNESIUM 2.1 mg/dL (1.8-2.4); PHOSPHORUS 3.7 mg/dL (2.5-4.9); POTASSIUM 4.8 mmol/L (3.5-5.1)
[2024-09-11 08:00] VITALS: BP 109/60; TEMP 97.7; O2SAT 98
[2024-09-11] MEDS: PANTOPRAZOLE 40 MG TABLET.DR PO SCH (08:00)
[2024-09-11] MEDS: BETHANECHOL CHLORIDE (10 MG) 10 MG TABLET PO SCH (08:14)
[2024-09-11] MEDS ORDERED: VANCOMYCIN 1 GM in IV D5W 250ml IV SCH (10:30)
[2024-09-11 12:00] VITALS: BP 109/54; TEMP 97.5; O2SAT 100
[2024-09-11 16:00] VITALS: BP 109/75; TEMP 98.4; O2SAT 99
[2024-09-11 20:00] VITALS: BP 148/75; TEMP 98.1; O2SAT 99
[2024-09-11] MEDS: LATANOPROST EYE DROP 0.005% 2.5 ML BOTTLE EACHEYE SCH (21:17)
[2024-09-11] MEDS: *INSULIN REGULAR(HUMULIN R)HUM 100 UNIT/ML VIAL SQ PRN (21:57)
[2024-09-12 04:00] VITALS: BP 134/70; TEMP 97.9; O2SAT 98
[2024-09-12 06:59] LABS: BASOPHILS % (AUTO) 0.7 % (0.0-2.0); EOSINOPHILS # (AUTO) 0.3 K/uL (0.0-0.7); EOSINOPHILS % (AUTO) 4.9 % (0.0-6.0); HEMATOCRIT 25 % (39-51); HEMOGLOBIN 8.2 g/dL (13.5-17.5); LYMPHOCYTES # (AUTO) 1.4 K/uL (0.8-4.8); LYMPHOCYTES % (AUTO) 20.9 % (20.0-44.0); MEAN CORPUSCULAR HEMOGLOBIN 27 PG (26.0-33.0); MEAN CORPUSCULAR HGB CONC 33 g/dl (31.0-36.0); MEAN CORPUSCULAR VOLUME 82 fL (80-96); MONOCYTES # (AUTO) 0.7 K/uL (0.1-1.30); MONOCYTES % (AUTO) 11.4 % (2.0-12.0); NEUTROPHILS % (AUTO) 62.1 % (43.0-81.0); PLATELET COUNT (AUTO) 333 K/uL (150-450); RED BLOOD CELL COUNT(AUTO) 3.07 MIL/uL (4.5-6.0); WHITE BLOOD COUNT (AUTO) 6.5 K/uL (4.3-11.0)
[2024-09-12 07:10] LABS: ALBUMIN 1.8 g/dL (3.4-5.0); BILIRUBIN,TOTAL 0.4 mg/dL (0.2-1.0); CALCIUM, SERUM 8.7 mg/dL (8.5-10.1); CREATININE 1.7 mg/dL (0.6-1.3); MAGNESIUM 2.1 mg/dL (1.8-2.4); PHOSPHORUS 2.9 mg/dL (2.5-4.9); POTASSIUM 4.3 mmol/L (3.5-5.1); TOTAL PROTEIN, SERUM 6.8 g/dL (6.4-8.2)
[2024-09-12 07:15] LABS: CREATININE, URINE 29.8 MG/DL (30.0-125.0); URINE TOTAL PROTEIN 79.7 mg/dL (0-11.9)
[2024-09-12 08:00] VITALS: BP 139/74; TEMP 98; O2SAT 99
[2024-09-12] MEDS ORDERED: VANCOMYCIN 1 GM in IV D5W 250ml IV SCH (09:00)
[2024-09-12] MEDS ORDERED: SULF1TAB48 PO (12:28)
[2024-09-12] MEDS ORDERED: BISACODYL SUPP (10 MG) 10 MG/SUPP.RECT SUPP.RECT RC PRN (13:00)
[2024-09-12] MEDS: LACTULOSE 10 G/15 ML UDC (PYXIS) PO ONE (13:02)
[2024-09-12 13:13] VITALS: BP 132/65; TEMP 98; O2SAT 96
[2024-09-12 16:00] VITALS: BP 125/62; TEMP 98; O2SAT 99
[2024-09-12 18:08] VITALS: BP 123/60; O2SAT 99
[2024-09-13 08:07] LABS: PTH, INTACT 8 pg/mL (15-65)
[2024-09-13] MEDS ORDERED: SORBITOL SOLUTION 70% 30 ML SOLUTION PO SCH (09:00)
[2024-09-13 13:12] LABS: *SPE A/G RATIO 0.6 (0.7-1.7); *SPE ALBUMIN 2.1 g/dL (2.9-4.4); *SPE ALPHA-1-GLOBULIN 0.3 g/dL (0.0-0.4); *SPE ALPHA-2-GLOBULIN 0.8 g/dL (0.4-1.0); *SPE BETA GLOBULIN 0.9 g/dL (0.7-1.3); *SPE GLOBULIN, TOTAL 3.7 g/dL (2.2-3.9); *SPE M-SPIKE Not Observed g/dL (Not Observed); *SPE PROTEIN TOTAL 5.8 g/dL (6.0-8.5); *SPEGAMMA GLOBULIN 1.7 g/dL (0.4-1.8)
== END 2024-09-12 19:59 | disposition home health service (06) | DRG 872 ==
LOC: ER 12:53 → MEDSG1 15:13
PROVIDERS: ADMIT Nurse Practitioner Acute Care; ATTEND Nurse Practitioner Acute Care
DX: A41.9 Sepsis, unspecified organism (principal); N39.0 Urinary tract infection, site not specified; N17.9 Acute kidney failure, unspecified; E87.20 Acidosis, unspecified; E87.1 Hypo-osmolality and hyponatremia; I13.0 Hypertensive heart and chronic kidney disease with heart failure and stage 1 through stage 4 chronic kidney disease, or unspecified chronic kidney disease; Z16.24 Resistance to multiple antibiotics; N18.9 Chronic kidney disease, unspecified; Z79.84 Long term (current) use of oral hypoglycemic drugs; Z79.899 Other long term (current) drug therapy; E11.22 Type 2 diabetes mellitus with diabetic chronic kidney disease; N40.1 Benign prostatic hyperplasia with lower urinary tract symptoms; R33.9 Retention of urine, unspecified; M89.8X9 Other specified disorders of bone, unspecified site; E86.9 Volume depletion, unspecified; D64.9 Anemia, unspecified; Z88.0 Allergy status to penicillin
CPT/HCPCS: 36415; 71045-TC; 76770-TC; 80048-TC; 80053-TC; 80061-TC; 80076-TC; 80202-TC; 81001; 82550-TC; 82553; 82570-TC; 82962-TC; 83605-TC; 83735-TC; 83970; 84100-TC; 84155; 84165; 84300-TC; 84484-TC; 85025-TC; 85730-TC; 87040-TC; 87086-TC; 97110-TC; 97116-TC; 97530-TC; A4223; G0378; J0692; J1650; J1815; J2185; J3370; J7030; J7050; J7060; J7120